=== PATIENT | female | born 1945 | race Caucasian/White ===

== ENCOUNTER 2018-11-22 10:14 | Emergency (ER) | payer OTHER ==
[~2018-11-22] VITALS: Ht 147.3 cm; Wt 54.0 kg
[2018-11-22 10:17] VITALS: BP 119/71
--- NOTE | 2018-11-22 10:23 | NUR ---
PT AMBULATES TO BED 7
--- NOTE | 2018-11-22 10:45 | NUR ---
C/O DYSURIA, HEMATURIA X 4 DAYS---BURNING PAIN. VSS; PATIENT POSITIONED FOR COMFORT; HOB ELEVATED; BEDRAILS UP X1; BED DOWN. ER MD MADE AWARE OF PT STATUS.
[2018-11-22] MEDS ORDERED: KETOROLAC 60 MG/2 ML VIAL IM ONE (10:50)
[2018-11-22] MEDS ORDERED: LEVOFLOXACIN 500 MG TAB PO ONE (10:50)
[2018-11-22] MEDS ORDERED: cefTRIAXone 1,000 MG in LIDOCAINE 1% ***ER ONLY *** 2.1 ML IM ONE (10:50)
[2018-11-22] MEDS ORDERED: cefTRIAXone 1,000 MG VIAL ONE (11:05)
[2018-11-22] MEDS ORDERED: LIDOCAINE MPF 1% 5mL VIAL ONE (11:06)
[2018-11-22 11:54] LABS: APPEARANCE,URINE HAZY (CLEAR); BILIRUBIN,URINE NEGATIVE (NEGATIVE); BLOOD, URINE 3+ (NEGATIVE); COLOR,URINE ORANGE (YELLOW); LEUKOCYTE ESTERASE ,URINE 3+ (NEGATIVE); NITRITE, URINE NEGATIVE (NEGATIVE); PH,URINE 6.5 (5.0-9.0); UGLUCOSE NEGATIVE (NEGATIVE)
[2018-11-22 11:55] LABS: RBC,URINE 3-10 (FEW) /HPF (0-5); WBC,URINE 80-100 /HPF (0-5)
[2018-11-22 12:14] VITALS: BP 119/71
--- NOTE | 2018-11-22 12:16 | NUR ---
Patient discharged with v/s stable. Written and verbal after care instructions given and explained. Patient alert, oriented and verbalized understanding of instructions. Ambulatory with steady gait. All questions addressed prior to discharge. ID band removed. Patient advised to follow up with PMD. Rx of LEVAQUIN AND FLOMAX given. Patient educated on indication of medication including possible reaction and side effects. Opportunity to ask questions provided and answered.
== END 2018-11-22 12:16 | disposition home or self-care (01) ==
LOC: MED 10:14
DX: N39.0 Urinary tract infection, site not specified (principal); N13.2 Hydronephrosis with renal and ureteral calculous obstruction; I10 Essential (primary) hypertension; E03.9 Hypothyroidism, unspecified
CPT/HCPCS: 74176; 81001; 87086; 87186; 96372; 99284; J0696; J1885; J2001

== ENCOUNTER 2020-03-23 08:48 | Inpatient (IN) | payer OTHER ==
[~2020-03-23] VITALS: Ht 157.5 cm; Wt 54.4 kg
[2020-03-23] VITALS (7 sets, daily range): BP systolic 129–157; BP diastolic 59–76
--- NOTE | 2020-03-23 08:59 | NUR ---
Pt taken to bed 1.
--- NOTE | 2020-03-23 09:06 | NUR ---
75 Y/O F C/C SYNCOPE EPISODES X 1 MONTH. PER PT HAS BEEN GETTING PROGRESSIVELY WORSE, LAST SYNCOPE EPISODE TODAY AT 0700 HOURS. PER PATIENT COMPLETELY "PASSED OUT" PT PRESENTS IN NO RESPIRATORY DISTRESS, EUPNIC, A/OX4, PUPILS PERRLA, VSS. AMBULATED TO BED. DENIES NVD, CHEST PAIN. PT NKA. HX HTN,THYROID,HDL. RX AMLODOPINE,SIMVASTATIN,EUTHYROX. PLACED ON MONITOR, FULL FOWLERS. SIDE RAIL X1.
--- NOTE | 2020-03-23 09:10 | NUR ---
ERMD AT BEDSIDE
--- NOTE | 2020-03-23 09:43 | NUR ---
URINE GIVEN TO LAB AT BEDSIDE
--- NOTE | 2020-03-23 09:43 | NUR ---
LAB AT BEDSIDE
--- NOTE | 2020-03-23 09:43 | NUR ---
EMT AT BEDSIDE - EKG
--- NOTE | 2020-03-23 09:49 | NUR ---
PT TAKEN TO CT VIA WHEELCHAIR
[2020-03-23 09:53] LABS: BASOPHILS % (AUTO) 0.4 % (0.0-2.0); EOSINOPHILS # (AUTO) 0.1 K/uL (0-0.4); EOSINOPHILS % (AUTO) 0.8 % (0.0-4.0); HEMOGLOBIN 13.7 g/dL (12.0-16.0); LYMPHOCYTES # (AUTO) 1.6 K/uL (2.5-16.5); LYMPHOCYTES % (AUTO) 23.4 % (20.5-51.1); MEAN CORPUSCULAR HEMOGLOBIN 30 pg (27-31); MEAN CORPUSCULAR HGB CONC 33 g/dL (33-37); MEAN CORPUSCULAR VOLUME 90.3 fL (80-94); MONOCYTES # (AUTO) 0.6 K/uL (0.8-1.0); MONOCYTES % (AUTO) 8.8 % (1.7-9.3); NEUTROPHILS # (AUTO) 4.6 K/uL (1.8-7.7); NEUTROPHILS % (AUTO) 66.6 % (42.2-75.2); PLATELET COUNT (AUTO) 223 K/uL (140-450); RED BLOOD CELL COUNT(AUTO) 4.54 MIL/uL (4.20-5.40); WHITE BLOOD COUNT (AUTO) 6.9 K/uL (4.8-10.8)
--- NOTE | 2020-03-23 10:00 | NUR ---
PT RESTING IN BED, SIDE RAIL X1
[2020-03-23 10:10] LABS: APPEARANCE,URINE CLEAR (CLEAR); BILIRUBIN,URINE NEGATIVE (NEGATIVE); BLOOD, URINE TRACE-L (NEGATIVE); LEUKOCYTE ESTERASE ,URINE TRACE (NEGATIVE); NITRITE, URINE NEGATIVE (NEGATIVE); UGLUCOSE NEGATIVE (NEGATIVE)
[2020-03-23 10:13] LABS: COLOR,URINE STRAW (YELLOW)
[2020-03-23 10:23] LABS: ALBUMIN 3.9 g/dL (3.4-5.0); ASPARTATE AMINOTRANSFERASE 19 U/L (15-37); CARBON DIOXIDE 30.1 mmol/L (21-32); CHLORIDE 106 mmol/L (98-107); CREATININE 0.9 mg/dL (0.6-1.3); GLUCOSE 101 mg/dL (74-106); POTASSIUM 4.1 mmol/L (3.5-5.1); SODIUM SERUM 143 mmol/L (136-145); THYROID STIMULATING HORMONE 3.25 uIU/mL (0.34-3.74); TOTAL BILIRUBIN 0.3 mg/dL (0.0-1.0); UREA NITROGEN, BLOOD 16 mg/dL (7-18)
[2020-03-23] MEDS ORDERED: SIMV10TA1 PO (11:02)
[2020-03-23] MEDS ORDERED: AMLO5TAB PO (11:02)
[2020-03-23] MEDS ORDERED: METF500T PO (11:02)
[2020-03-23] MEDS ORDERED: SYN.075 PO (11:02)
[2020-03-23] MEDS ORDERED: DOCUSATE SODIUM 100 MG GELCAP PO PRN (11:25)
[2020-03-23] MEDS ORDERED: MORPHINE SULFATE 2 MG/ML SYR IVP PRN (11:25)
[2020-03-23] MEDS ORDERED: MECLIZINE 25 MG TAB PO PRN (11:25)
[2020-03-23] MEDS ORDERED: ONDANSETRON 4 MG/2 ML VIAL IM/IVP PRN (11:25)
[2020-03-23] MEDS ORDERED: ACETAMINOPHEN 325 MG TAB PO PRN (11:25)
[2020-03-23] MEDS ORDERED: HYDROcodone/APAP 5/325 MG 1 TAB TAB PO PRN (11:25)
--- NOTE | 2020-03-23 11:35 | NUR ---
SAMSON: KYLE SILVER CELL PHONE: [phone]
[2020-03-23 11:46] LABS: BARBITURATE, URINE NEGATIVE ng/ml (NEG <=200); BENZODIAZEPINE, URINE NEGATIVE ng/mL (NEG <=200); CANNABINOID, URINE NEGATIVE ng/mL (NEG <=50); COCAINE, URINE NEGATIVE ng/mL (NEG <=300); OPIATE, URINE NEGATIVE ng/mL (NEG <=2000); PHENCYCLIDINE SCREEN,URINE NEGATIVE ng/mL (NEG <=25)
[2020-03-23 12:00] LABS: MAGNESIUM 2.5 mg/dL (1.8-2.4); PHOSPHORUS 3.2 mg/dL (2.5-4.9); THYROID STIMULATING HORMONE 3.11 uIU/mL (0.34-3.74)
[2020-03-23] MEDS: NACL 0.9% 1,000 ML IV SCH (12:00)
--- NOTE | 2020-03-23 12:00 | NUR ---
RECEIVED BEDSIDE REPORT FROM ED NURSE. PT RESTING IN BED. ABLE TO MAKE NEEDS KNOWN. RESPIRATIONS EVEN AND UNLABORED WITH NO SOB OR RESPIRATORY DISTRESS. SKIN WARM AND DRY TO TOUCH. IV SITE IN RIGHT FA 20G IS CLEAN, DRY, AND INTACT. SAFETY MEASURES IN PLACE. WILL CONTINUE TO MONITOR
--- NOTE | 2020-03-23 12:00 | NUR ---
Patient will be admitted to care of [facility]. Admited to TELEMETRY. Will go to room 122B. Belongings list completed. Report to MEIR MARIE.
[2020-03-23 12:06] LABS: PROTHROMBIN TIME 9.8 secs (10.8-13.4)
[2020-03-23] MEDS ORDERED: DEXTROSE 50% 50 ML SYR IVP PRN (12:20)
[2020-03-23] MEDS ORDERED: INSULIN LISPRO SLIDING SCALE 100 UNITS/ML VIAL SUBQ PRN (12:20)
--- NOTE | 2020-03-23 12:56 | NUR ---
ADMINISTERED SCHED MED PRESCRIBED PER MD ORDER. PT TOLERATED WELL. MEDICATION EDUCATION PERFORMED. PT VERBALIZED UNDERSTANDING. SAFETY MEASURES IN PLACE. WILL CONTINUE TO MONITOR
--- NOTE | 2020-03-23 14:05 | NUR ---
OBTAINED ORTHOSTATIC BLOOD PRESSURE. PT STANDIN/76, HR 88. PT SITTING 138/66, HR 86. PT LAYIN/68. SAFETY MEASURES IN PLACE. WILL CONTINUE TO MONITOR
--- NOTE | 2020-03-23 15:53 | NUR ---
RECEIVED A CALL FROM COORDINATOR FABI OF [facility], REQUESTING FOR H&P AND ED NOTES. SHE STATED THEY RECEIVED A FACE SHEET BUT NO CLINICALS, INFORMED HER THAT PATIENT IS A NEW ADMIT. SHE PROVIDED ME WITH ADAN MONTES'S NUMBER [phone] AND FAX NUMBER [phone]. COORDINATOR MARTHA MADE AWARE. Addendum: 03/25/20 at 1235 by Shira Carballo CM DC PLANNING: FAXED THE ORDER FOR HOME HEALTH FOR PT TO THE [facility]. ADAN TO FOLLOW
[2020-03-23] MEDS ORDERED: BLOOD GLUCOSE MONITORING 1 DEV DEV FS SCH (16:30)
--- NOTE | 2020-03-23 16:30 | NUR ---
PT BLOOD SUGAR IS 102. NO PRN INSULIN WILL BE NEEDED AT THIS TIME. SAFETY MEASURES IN PLACE. WILL CONTINUE TO MONITOR
--- NOTE | 2020-03-23 16:45 | NUR ---
OBTAINED URINE SPECIMEN FOR UA. PT TOLERATED WELL. SAFETY MEASURES IN PLACE. WILL CONTINUE TO MONITOR
--- NOTE | 2020-03-23 17:45 | NUR ---
HOURLY ROUNDING. PT RESTING IN BED. ABLE TO MAKE NEEDS KNOWN. RESPIRATIONS EVEN AND UNLABORED WITH NO SOB OR RESPIRATORY DISTRESS. SKIN WARM AND DRY TO TOUCH. SAFETY MEASURES IN PLACE. WILL CONTINUE TO MONITOR
--- NOTE | 2020-03-23 19:10 | NUR ---
ENDORSED AT BEDSIDE TO NIGHTSHIFT NURSE FOR CONTINUITY OF CARE. PT IS STABLE
--- NOTE | 2020-03-23 19:15 | NUR ---
RECEIVED BEDSIDE REPORT FROM AM SHIFT RN FOR PT'S CONTINUITY OF CARE. PT IS AAOX4, PRIMARILY AZERI SPEAKING, UNDERSTANDS AND SPEAKS SOME SLOVENIAN, IS ON WHARF WORKER, ON ROOM AIR, HAS RIGHT FA 20G WITH NS AT 40ML/HR, DENIES PAIN OR DIZZINESS AT THIS TIME. EXPLAINED TO PT THE SENIOR IOS SOFTWARE ENGINEER ROUTINE, PT VERBALIZED UNDERSTANDING. SAFETY MEASURES IN PLACE AND CALL LIGHT IS WITHIN REACH. WILL MONITOR PT THROUGHOUT SHIFT.
[2020-03-23] MEDS: SIMVASTATIN 10 MG TAB PO SCH (21:09)
--- NOTE | 2020-03-23 21:14 | NUR ---
ADMINISTERED SCHEDULED MEDICATION ORDERED. PT TOLERATED IT WELL. PT IS AWAKE, RESTING, DENIES ANY PAIN AT THIS TIME. WILL CONTINUE TO MONITOR PT.
--- NOTE | 2020-03-23 23:00 | NUR ---
MADE ROUNDS. PT ASLEEP WITH NO SIGNS OF DISTRESS. WILL CONTINUE TO MONITOR PT.
[2020-03-24] VITALS: BP 115/53
--- NOTE | 2020-03-24 02:15 | NUR ---
PT ASLEEP WITH NO SIGNS OF DISTRESS OR DISCOMFORT. WILL CONTINUE TO MONITOR PT.
[2020-03-24 04:00] VITALS: BP 136/53
--- NOTE | 2020-03-24 04:00 | NUR ---
VS CHECKED AND CHARTED. PT WAS ASLEEP, WOKE UP AND DENIES ANY PAIN, DISCOMFORT OR LIGHT-HEADEDNESS. WILL CONTINUE TO MONITOR PT.
[2020-03-24] MEDS: LEVOTHYROXINE 0.075 MG TAB PO SCH (05:35)
--- NOTE | 2020-03-24 05:35 | NUR ---
ADMINISTERED SCHEDULED MEDICATIONS ORDERED. PT TOLERATED IT WELL. PT TEACHING GIVEN, PT VERBALIZED UNDERSTANDING. PT DENIES ANY PAIN OR DISCOMFORT. WILL CONTINUE TO MONITOR PT.
[2020-03-24 06:07] LABS: BASOPHILS % (AUTO) 0.2 % (0.0-2.0); EOSINOPHILS # (AUTO) 0.2 K/uL (0-0.4); EOSINOPHILS % (AUTO) 2.6 % (0.0-4.0); HEMOGLOBIN 12.9 g/dL (12.0-16.0); LYMPHOCYTES % (AUTO) 35.6 % (20.5-51.1); MEAN CORPUSCULAR HEMOGLOBIN 30 pg (27-31); MEAN CORPUSCULAR HGB CONC 33 g/dL (33-37); MONOCYTES # (AUTO) 0.8 K/uL (0.8-1.0); MONOCYTES % (AUTO) 9.3 % (1.7-9.3); NEUTROPHILS # (AUTO) 4.4 K/uL (1.8-7.7); NEUTROPHILS % (AUTO) 52.3 % (42.2-75.2); PLATELET COUNT (AUTO) 219 K/uL (140-450); RED BLOOD CELL COUNT(AUTO) 4.29 MIL/uL (4.20-5.40); RED CELL DISTRIBUTION WIDTH 13.4 % (11.6-13.7); WHITE BLOOD COUNT (AUTO) 8.5 K/uL (4.8-10.8)
--- NOTE | 2020-03-24 06:17 | NUR ---
PT ASLEEP WITH NO SIGNS OF DISTRESS. WILL ENDORSE TO AM SHIFT RN FOR PT'S CONTINUITY OF CARE.
[2020-03-24 06:58] LABS: ANION GAP 9.9 (8-16); CARBON DIOXIDE 30.5 mmol/L (21-32); CHLORIDE 108 mmol/L (98-107); CREATININE 0.9 mg/dL (0.6-1.3); GLUCOSE 92 mg/dL (74-106); POTASSIUM 4.4 mmol/L (3.5-5.1); SODIUM SERUM 144 mmol/L (136-145); UREA NITROGEN, BLOOD 15 mg/dL (7-18)
--- NOTE | 2020-03-24 07:00 | NUR ---
RECEIVED BEDSIDE REPORT FROM AIR VICE MARSHAL RN, CAMILLE, FOR CONTINUITY OF CARE. PT IS AAOX4, KINYARWANDA SPEAKING. IS ON STREETCAR OPERATOR WITH SINUS BRADYCARDIA READING, ON ROOM AIR WITH SPO2 OF 97%, HAS RIGHT FA 20G WITH NS RUNNING AT 40ML/HR. DENIES PAIN OR DIZZINESS AT THIS TIME. DISCUSSED PLAN OF CARE, PT VERBALIZED UNDERSTANDING. SAFETY MEASURES IN PLACE AND CALL LIGHT IS WITHIN REACH. WILL CONTINUE TO MONITOR.
[2020-03-24 07:17] LABS: CHOL/HDL RATIO 3.1 (1-4.5)
--- NOTE | 2020-03-24 07:36 | NUR ---
ENDORSED TO DAY SHIFT RN, ONEYDA, FOR CONTINUITY OF CARE.
--- NOTE | 2020-03-24 07:41 | NUR ---
RECEIVED BEDSIDE REPORT FROM NIGHTSHIFT NURSE. PT RESTING IN BED. ABLE TO MAKE NEEDS KNOWN. RESPIRATIONS EVEN AND UNLABORED WITH NO SOB OR RESPIRATORY DISTRESS. SKIN WARM AND DRY TO TOUCH. IV SITE IN RFA 20G IS CLEAN, DRY, AND INTACT. SAFETY MEASURES IN PLACE. WILL CONTINUE TO MONITOR
[2020-03-24 08:00] VITALS: BP 128/62
--- NOTE | 2020-03-24 08:56 | NUR ---
PATIENT HAS BEEN SCREENED AND CATEGORIZED MODERATE NUTRITION RISK. PATIENT WILL BE SEEN WITHIN 3-5 DAYS OF ADMISSION. 03/25/20 03/27/[address]
[2020-03-24] MEDS ORDERED: amLODIPine 5 MG TAB PO SCH (09:00)
--- NOTE | 2020-03-24 09:00 | NUR ---
ADMINISTERED SCHED MED PRESCRIBED PER MD ORDER. PT TOLERATED WELL. MEDICATION EDUCATION PERFORMED. PT VERBALIZED UNDERSTANDING. SAFETY MEASURES IN PLACE. WILL CONTINUE TO MONITOR
--- NOTE | 2020-03-24 09:33 | NUR ---
HEMSTITCHER NOTE: Basic Screen: Yes High Risk DC Screen [place]: LAINE BALLARD [place] Relationship: Pre-Admission Living Arrangements: Lives with Other Prior ADL Independent Current Home Health Name/Tel: N/A Current DME/02 Name/Tel: N/A Current Hospice Name/Tel: N/A Current Dialysis Name/Tel: N/A Healthcare Decision Maker: Patient Advance Directive No Physician Orders for Life Sustaining Treatment Form No Patient/Family Have Educational Needs No Discipline: Case Mgt/Social Svcs Tentative Discharge Plan/Destination: No Needs Identified Will require assistance post discharge: No Referred to Collar Setter: No Tentative Discharge Plan Summary: PATIENT IS A 75-YEAR-OLD FEMALE ADMITTED FOR SYNCOPE. PATIENT HAS PMHX OF HYPOTHYROIDISM, HTN, AND HLD. PATIENT WAS ADMITTED FROM HOME WHERE SHE LIVES WITH FAMILY. SW CONTACTED GRANDBIN SILVER [phone] TO VERIFY DEMOGRAPHICS. PER KYLE, PATIENT IS INDEPENDENT WITH ALL ADLS AND IS ALERT/ORIENTED AT BASELINE. KYLE STATED REQUIRES NO ASSISTANCE WITH ADLS AND THAT ALL NEEDS ARE BEING MET. KYLE REPORTED NO HISTORY OF SUBSTANCE ABUSE OR MENTAL HEALTH. TENTATIVE DISCHARGE PLAN IS FOR PATIENT TO RETURN HOME. NO FURTHER NEEDS IDENTIFIED. Signature: MYLES HERNANDEZ Date: Mar 24, 2020 Time: 09:27
--- NOTE | 2020-03-24 09:39 | NUR ---
ADMINISTERED SCHED MED PRESCRIBED PER MD ORDER. PT TOLERATED WELL. MEDICATION EDUCATION PERFORMED. PT VERBALIZED UNDERSTANDING. SAFETY MEASURES IN PLACE. WILL CONTINUE TO MONITOR
[2020-03-24] MEDS: NACL 0.9% 1,000 ML IV SCH (11:22)
--- NOTE | 2020-03-24 11:22 | NUR ---
ADMINISTERED SCHED MED PRESCRIBED PER MD ORDER. PT TOLERATED WELL. MEDICATION EDUCATION PERFORMED. PT VERBALIZED UNDERSTANDING. SAFETY MEASURES IN PLACE. WILL CONTINUE TO MONITOR
[2020-03-24 12:00] VITALS: BP 109/72
--- NOTE | 2020-03-24 12:15 | NUR ---
PT SON CALLED TO CHECK ON PT. INFORMED SON ON PT CONDITION. SON VERBALIZED UNDERSTANDING AND SAID HE WILL CALL AGAIN LATER TO CHECK ON PATIENT. SAFETY MEASURES IN PLACE. WILL CONTINUE TO MONITOR
--- NOTE | 2020-03-24 15:56 | NUR ---
PT TALKING ON THE PHONE TO FAMILY. ABLE TO MAKE NEEDS KNOWN. RESPIRATIONS EVEN AND UNLABORED WITH NO SOB OR RESPIRATORY DISTRESS. SKIN WARM AND DRY TO TOUCH. SAFETY MEASURES IN PLACE. WILL CONTINUE TO MONITOR
[2020-03-24 16:00] VITALS: BP 132/57
--- NOTE | 2020-03-24 17:24 | NUR ---
[employer] SPECIAL EDUCATION TEACHER CALLED AND SAID HEART RATE HAS BEEN BETWEEN 39-[address] MOSQUEDA MADE AWARE. SAFETY MEASURES IN PLACE. WILL CONTINUE TO MONITOR
--- NOTE | 2020-03-24 18:17 | NUR ---
PT RESTING IN BED. ABLE TO MAKE NEEDS KNOWN. RESPIRATIONS EVEN AND UNLABORED WITH NO SOB OR RESPIRATORY DISTRESS. SAFETY MEASURES IN PLACE. WILL CONTINUE TO MONITOR
--- NOTE | 2020-03-24 19:21 | NUR ---
ENDORSED AT BEDSIDE TO NIGHTSHIFT NURSE. PT IS STABLE
--- NOTE | 2020-03-24 19:30 | NUR ---
RECEIVED BEDSIDE REPORT FROM AM RN. RECEIVED PATIENT A/A/OX4, SITTING UP AT THE SIDE OF THE BED WATCHING TV. PATIENT DENIES PAIN,CHEST PAIN,SOB AND DIZZINESS AT THIS TIME. SB ON OUTPATIENT THERAPIST, HR 50-59. IVF NS INFUSING @ 40 CC/HR. FALL PRECAUTION IMPLEMENTED. INSTRUCTED THE PT TO CALL FOR ASSISTANCE AT ALL TIMES. PT VERBALIZED UNDERSTANDING WITH THE POC. CALL LIGHT WITHIN REACH. WILL CONTINUE POC AND MONITORING.
[2020-03-24 20:00] VITALS: BP 117/50
[2020-03-24] MEDS: SIMVASTATIN 10 MG TAB PO SCH (20:11)
--- NOTE | 2020-03-24 21:30 | NUR ---
SCHEDULED MEDICATIONS GIVEN TO THE PATIENT ORDERED. NO COMPLAIN AT THIS TIME. CALL LIGHT WIHTIN REACH. WILL CONTINUE POC AND MONITORING.
--- NOTE | 2020-03-24 23:30 | NUR ---
PATIENT SLEEPING AT THIS TIME. SB ON SENIOR AGRICULTURAL ASSISTANT, HR 45 - 70'S. NOTED THAT THE PATIENT HEART RATE WENT DOWN TO 45. WENT TO THE PT ROOM AND PATIENT WAS IN DEEP SLEEP. NEED TO SHAKE THE PT SO MANY TIMES BEFORE SHE WOKE UP AND NOTED THAT THE PT HEART RATE WENT BACK UP TO 70. NO COMPLAIN OF ANYTHING FROM THE PT.CALL LIGHT WITHIN REACH. WILL CONTINUE POC AND MONITORING.
[2020-03-25] VITALS: BP 119/45
--- NOTE | 2020-03-25 02:00 | NUR ---
Pt asleep at this time. No sign and symptoms of distress. Safety measures in placed. Call light within reach.
[2020-03-25 04:00] VITALS: BP 127/57
--- NOTE | 2020-03-25 04:17 | NUR ---
Checked patient vital signs, stable, afebrile, sating 98% on RA. No complain of pain at this time. Not in any distress. Call light within reach. Will continue to monitor patient.
[2020-03-25] MEDS: LEVOTHYROXINE 0.075 MG TAB PO SCH (05:48)
--- NOTE | 2020-03-25 06:24 | NUR ---
PATIENT STABLE. NO ACUTE EVENTS OVERNIGHT. NOT IN ANY DISTRESS AT THIS TIME. NO COMPLAIN FROM THE PATIENT. ALL NEEDS ATTENDED. CALL LIGHT WITHIN REACH. WILL ENDORSE THE PT TO THE ONCOMING RN FOR CONTINUITY OF CARE.
[2020-03-25 07:02] LABS: BASOPHILS % (AUTO) 0.4 % (0.0-2.0); EOSINOPHILS # (AUTO) 0.2 K/uL (0-0.4); EOSINOPHILS % (AUTO) 2.6 % (0.0-4.0); HEMATOCRIT 38.7 % (36-48); HEMOGLOBIN 12.9 g/dL (12.0-16.0); LYMPHOCYTES # (AUTO) 2.4 K/uL (2.5-16.5); LYMPHOCYTES % (AUTO) 33.4 % (20.5-51.1); MEAN CORPUSCULAR HEMOGLOBIN 30 pg (27-31); MEAN CORPUSCULAR HGB CONC 33 g/dL (33-37); MEAN CORPUSCULAR VOLUME 89.9 fL (80-94); MONOCYTES # (AUTO) 0.8 K/uL (0.8-1.0); MONOCYTES % (AUTO) 10.6 % (1.7-9.3); NEUTROPHILS # (AUTO) 3.9 K/uL (1.8-7.7); PLATELET COUNT (AUTO) 217 K/uL (140-450); RED CELL DISTRIBUTION WIDTH 13.4 % (11.6-13.7); WHITE BLOOD COUNT (AUTO) 7.3 K/uL (4.8-10.8)
--- NOTE | 2020-03-25 07:15 | NUR ---
RECEIVED BEDSIDE REPORT FROM MARGIN ANALYST NURSES FOR CONTINUITY OF CARE. PT IS AWAKE AND RESTING ON BED AT THIS TIME. PT IS AAOX4. RESPIRATION EVEN AND UNLABORED ON RA. DENIED PAIN, SOB, AND DIZZINESS AT THIS TIME. NO SIGNS OF ACUTE DISTRESS NOTED. IV ON RFA 20G, CLEAN AND INTACT, INFUSING PER MD ORDER. SKIN CLEAN AND DRY. PT IS AMBULATORY WITH STANDBY ASSIST AND CONTINENT. DISCUSSED PLAN OF CARE WITH PATIENT AND PATIENT VERBALIZED UNDERSTANDING. TELE MONITOR ATTACHED. SAFETY MEASURES IN PLACE. BED IN LOW POSITION AND CALL LIGHT WITHIN REACH. INSTRUCTED PT TO USE THE CALL LIGHT FOR ANY ASSISTANCE AND PT WAS AWARE.
[2020-03-25 07:16] LABS: ANION GAP 12.2 (8-16); CARBON DIOXIDE 27.9 mmol/L (21-32); CHLORIDE 108 mmol/L (98-107); CREATININE 0.8 mg/dL (0.6-1.3); GLUCOSE 91 mg/dL (74-106); MAGNESIUM 2.2 mg/dL (1.8-2.4); PHOSPHORUS 3.3 mg/dL (2.5-4.9); POTASSIUM 4.1 mmol/L (3.5-5.1); SODIUM SERUM 144 mmol/L (136-145); UREA NITROGEN, BLOOD 16 mg/dL (7-18)
[2020-03-25 08:00] VITALS: BP 123/48
--- NOTE | 2020-03-25 08:30 | NUR ---
ADJUSTED IVF TO 10 ML/HR NS PER MD ORDER. PT IS RESTING ON BED AT THIS TIME. NO SIGNS OF DISTRESS NOTED. TELE MONITOR ATTACHED. SAFETY MEASURES IN PLACE.
--- NOTE | 2020-03-25 08:42 | NUR ---
CHECKED BP PRIOR TO MEDS ADMINISTER, BP 123/[address] BURT Addendum: 03/25/20 at 0845 by Nahomy Hudson RN ACCIDENTALLY SAVED WITHOUT COMPLETE, PER MD. HOLD ORETIC AND HOLD ALL BETA-AKIRA MED. WILL RETURN ORETIC OMNICELL. ADMINISTERED THE REST OF SCHEDULED MEDS PER MD ORDER, MEDS EDUCATION PROVIDED AND PT VERBALIZED UNDERSTANDING. PT TOLERATED PO MEDS WELL. PT AWAKE AND RESTING ON BED AT THIS TIME. NO SIGNS OF ACUTE DISTRESS NOTED. TELE MONITOR ATTACHED. SAFETY MEASURES IN PLACE.
[2020-03-25] MEDS ORDERED: POTASSIUM CHLORIDE 10 MEQ TABER PO SCH (09:00)
[2020-03-25] MEDS ORDERED: ATENOLOL 25 MG TAB PO SCH (09:00)
[2020-03-25] MEDS ORDERED: HYDROCHLOROTHIAZIDE 25 MG TAB PO SCH (09:00)
--- NOTE | 2020-03-25 09:30 | NUR ---
PT AWAKE AND RESTING ON BED AT THIS TIME. DENIED PAIN, SOB AND DIZZINESS. NO SIGNS OF ACUTE DISTRESS NOTED. TELE MONITOR ATTACHED. SAFETY MEASURES IN PLACE. BED IN LOW POSITION AND REBEKA LIGHT WITHIN REACH.
[2020-03-25] MEDS ORDERED: DEXTROSE 50% 50 ML SYR IVP PRN (10:35)
[2020-03-25] MEDS ORDERED: INSULIN LISPRO SLIDING SCALE 100 UNITS/ML VIAL SUBQ PRN (10:35)
[2020-03-25] MEDS: NACL 0.9% 1,000 ML IV SCH (11:22)
--- NOTE | 2020-03-25 11:26 | NUR ---
VITAL SIGNS TAKEN. CHECKED BLOOD GLUCOSE 84 AND NO COVERAGE NEEDED. PT AWAKE AND TALKING ON HER PHONE. NO SIGNS OF DISTRESS NOTED. TELE MONITOR ATTACHED. SAFETY MEASURES IN PLACE.
[2020-03-25] MEDS: BLOOD GLUCOSE MONITORING 1 DEV DEV FS SCH ×2 (11:27→16:24)
[2020-03-25] MEDS ORDERED: LORA10TA19 PO (11:57)
[2020-03-25 12:00] VITALS: BP 118/51
[2020-03-25] MEDS ORDERED: MECL-303 PO (12:27)
--- NOTE | 2020-03-25 13:46 | NUR ---
PT IS RESTING ON BED. DENIED PAIN, DIZZINESS AND SOB. NO SIGNS OF DISTRESS NOTED. TELE MONITOR ATTACHED. SAFETY MEASURES IN PLACE.
--- NOTE | 2020-03-25 15:14 | NUR ---
PT AWAKE AND RESTING ON BED AT THIS TIME. DENIED PAIN, SOB AND DIZZINESS. NO SIGNS OF DISTRESS NOTED. TELE MONITOR ATTACHED.SAFETY MEASURES IN PLACE.
[2020-03-25 16:00] VITALS: BP 133/48
--- NOTE | 2020-03-25 16:20 | NUR ---
VITAL SIGNS TAKEN. CHECKED BLOOD GLUCOSE 108 AND NO COVERAGE NEEDED. PT AWAKE AND RESTING ON BED AT THIS TIME. DENIED PAIN, SOB AND DIZZINESS. NO SIGNS OF DISTRESS NOTED. TELE MONITOR ATTACHED. SAFETY MEASURES IN PLACE.
--- NOTE | 2020-03-25 16:55 | NUR ---
PT IS DOING ECHOCARDIOGRAM. TECH IS BY BEDSIDE. NO SIGNS OF DISTRESS NOTED. TELE MONITOR ATTACHED. SAFETY MEASURES IN PLACE.
--- NOTE | 2020-03-25 17:36 | NUR ---
PT IS EATING DINNER AT THIS TIME. NO SIGNS OF DISTRESS NOTED. TELE MONITOR ATTACHED. SAFETY MEASURES IN PLACE.
[2020-03-25] MEDS ORDERED: AMOX-999 PO (17:48)
[2020-03-25] MEDS ORDERED: LACT-81 PO (17:49)
--- NOTE | 2020-03-25 18:01 | NUR ---
INFORMED PT THAT SHE WILL BE DC HOME TODAY AND PT WAS AWARE. PER PATIENT, SHE WILL CONTACT HER FAMILY FOR TERRAZZO MECHANIC HELPER. WILL PREPARE DC DOCUMENT.
--- NOTE | 2020-03-25 18:20 | NUR ---
PT CALLED HER SON AND HE WILL BE ARRIVE IN 10 MINS. NO SIGNS OF DISTRESS NOTED. TELE MONITOR ATTACHED. SAFETY MEASURES IN PLACE.
--- NOTE | 2020-03-25 18:31 | NUR ---
DISCHARGE INSTRUCTION PROVIDED TO PATIENT AT BEDSIDE. EDUCATED PT ON FOLLOW UP WITH MD, SEEK MEDICAL HELP IN CASE OF EMERGENCY, MEDICATION REGIMEN, SIDE EFFECTS, DISEASE MANAGEMENT, DIET AND LIFE STYLE. ANSWERED ALL PT'S QUESTIONS AND PT VERBALIZED UNDERSTANDING. PROVIDED HARD COPY OF DISCHARGE INSTRUCTION AND PT WAS AWARE THAT PRESCRIPTION SENT TO HER PREFERRED PHARMACY [facility]. PT IS UP TO DATE WITH FLU AND PNA VACCINES. PT CHANGED INTO HER OWN CLOTHES AND PACKED UP ALL HER BELONGINGS. AWAITING FOR FAMILY TO ARRIVE AT LOBBY FOR [place]. NO SIGNS OF DISTRESS NOTED. SAFETY MEASURES IN PLACE.
--- NOTE | 2020-03-25 18:40 | NUR ---
PER PATIENT, HER SON IS ALMOST ARRIVE AND REQUESTS TO WAIT IN THE LOBBY. REMOVED IV AND CANNULA INTACT, NO BLEEDING ON IV SITE. REMOVED ALL ARM BANDS. PT TOOK ALL HER BELONGINGS. WALKED PT TO THE FRONT LOBBY AND PT IS GOING TO DC HOME. PT IS IN STABLE CONDITION.
== END 2020-03-25 18:40 | disposition home or self-care (01) | DRG 74 ==
LOC: MED 08:48 → MTU 11:28
PROVIDERS: ADMIT General Practice; ATTEND General Practice
PROC: 4A10X4Z Monitoring of Central Nervous Electrical Activity, External Approach (ICD-10-PCS; principal; 2020-03-24)
DX: G90.8 Other disorders of autonomic nervous system (principal); N39.0 Urinary tract infection, site not specified; I95.1 Orthostatic hypotension; E83.41 Hypermagnesemia; I10 Essential (primary) hypertension; E78.00 Pure hypercholesterolemia, unspecified; R00.1 Bradycardia, unspecified; H66.92 Otitis media, unspecified, left ear; T46.1X5A Adverse effect of calcium-channel blockers, initial encounter; Y92.89 Other specified places as the place of occurrence of the external cause
CPT/HCPCS: 36415; 70450; 71045; 80048; 80053; 80305; 81003; 82140; 82948; 83036; 83690; 83735; 83880; 84100; 84443; 84484; 85025; 85610; 85730; 87081; 87086; 93005; 93880; 97116; 97161-GP; 99285; J1644; J1815; J7030; Q0092

== ENCOUNTER 2020-03-28 12:03 | Emergency (ER) | payer OTHER, SELFPAY ==
[~2020-03-28] VITALS: Ht 162.6 cm; Wt 55.0 kg
[~2020-03-28 12:03] MED LIST: AMOX-999 PO; LACT-81 PO; LORA10TA19 PO; MECL-303 PO; SIMV10TA1 PO; SYN.075 PO
--- NOTE | 2020-03-28 12:03 | NUR ---
Patient transferred to bed 1 via wheelchair by tech. RN evaluating patient at bedside.
[2020-03-28 12:05] VITALS: BP 120/64
--- NOTE | 2020-03-28 12:56 | NUR ---
PT ARRIVED FOR EVAL OF MULTIPLE SYNCOPY EPISODES AT HOME, WITNESSED UNPROVOKED, ADDS SHE CAN BE WATERING HER GARDEN, SITTING IN THE LIVING ROOM, OR LAYING DOWN----DENIES CP, HEADACHE, OR SOB AT THIS TIME. NOTED HER RADHA IN THE HIGH 30'S PADS APPLIED AND PLACED ON CRASH CART MONITOR
--- NOTE | 2020-03-28 12:57 | NUR ---
LABS COLLECTED AT IV START AND CXR COMPLETED WELL
--- NOTE | 2020-03-28 13:12 | NUR ---
COVID TEST SWAB SENT TO LAB
[2020-03-28 13:14] LABS: BASOPHILS # (AUTO) 0.1 K/uL (0.00-0.22); BASOPHILS % (AUTO) 0.6 % (0.0-2.0); EOSINOPHILS # (AUTO) 0.1 K/uL (0-0.4); EOSINOPHILS % (AUTO) 1.7 % (0.0-4.0); HEMATOCRIT 36.4 % (36-48); HEMOGLOBIN 12.2 g/dL (12.0-16.0); MEAN CORPUSCULAR HEMOGLOBIN 30 pg (27-31); MEAN CORPUSCULAR HGB CONC 33 g/dL (33-37); MEAN CORPUSCULAR VOLUME 90.1 fL (80-94); MONOCYTES # (AUTO) 0.8 K/uL (0.8-1.0); MONOCYTES % (AUTO) 9.7 % (1.7-9.3); PLATELET COUNT (AUTO) 205 K/uL (140-450); RED BLOOD CELL COUNT(AUTO) 4.04 MIL/uL (4.20-5.40); RED CELL DISTRIBUTION WIDTH 13.3 % (11.6-13.7); WHITE BLOOD COUNT (AUTO) 7.9 K/uL (4.8-10.8)
[2020-03-28 13:30] LABS: ALBUMIN 3.1 g/dL (3.4-5.0); ANION GAP 14.4 (8-16); ASPARTATE AMINOTRANSFERASE 29 U/L (15-37); CARBON DIOXIDE 24.9 mmol/L (21-32); CHLORIDE 104 mmol/L (98-107); CREATININE 1.1 mg/dL (0.6-1.3); GLUCOSE 118 mg/dL (74-106); POTASSIUM 4.3 mmol/L (3.5-5.1); SODIUM SERUM 139 mmol/L (136-145); TOTAL BILIRUBIN 0.2 mg/dL (0.0-1.0); UREA NITROGEN, BLOOD 24 mg/dL (7-18)
--- NOTE | 2020-03-28 14:00 | NUR ---
PT REMAINS IN [facility], DENIES SOB NO CP NOR DIZZINESS AT THIS TIME. CONTINUES TO WAIT FOR TRANSFER FOR HIGHER CARE
[2020-03-28 14:02] LABS: PROTHROMBIN TIME 9.7 secs (10.8-13.4)
--- NOTE | 2020-03-28 16:00 | NUR ---
PT UP TO RESTROOM AND BACK TO [facility]---DENIED CP NO SOB---PT ON PACER PADS FOR OR IF TO BECOME SYMPTOMATIC. CONTINUES TO WAIT FOR TRANSFER
--- NOTE | 2020-03-28 18:16 | NUR ---
[facility] at bedside for transfer to [facility].
[2020-03-28 18:24] VITALS: BP 125/49
--- NOTE | 2020-03-28 18:25 | NUR ---
Patient to be transferred to [facility] Is being transferred due to . Receiving facility has accepting physician and available space. ER physician has signed transfer form. Patient or responsible republican has agreed to transfer and signed form. Patient belongings inventoried and will be sent with patient. Copy of nursing notes, lab reports, EKG, Physicians Orders and X-rays to be sent with patient. Report called to at receiving facility. ambulance service has been called for transfer. ETA is .
== END 2020-03-28 18:25 | disposition short-term general hospital (02) ==
LOC: EEVIPCON 12:03 → MED 12:03
DX: R00.1 Bradycardia, unspecified (principal); E07.9 Disorder of thyroid, unspecified; E78.5 Hyperlipidemia, unspecified; E11.9 Type 2 diabetes mellitus without complications; I10 Essential (primary) hypertension; R55 Syncope and collapse; Z79.899 Other long term (current) drug therapy; Z90.711 Acquired absence of uterus with remaining cervical stump
CPT/HCPCS: 36415; 71045; 80053; 83880; 84484; 85025; 85610; 93005; 99291; C9803; Q0092; U0003; 99285